=== PATIENT | female | born 1955 | race Caucasian/White ===

== ENCOUNTER → 2016-07-18 | Outpatient (CLI) | payer BC ==
[2016-07-18 18:40] VITALS: BP 150/89
== END ==
LOC: MHUC 18:06
PROVIDERS: ATTEND Physician Assistant
DX: M25.551 Pain in right hip (principal); M53.88 Other specified dorsopathies, sacral and sacrococcygeal region
CPT/HCPCS: 99213

== ENCOUNTER → 2016-07-31 | Outpatient (CLI) | payer BC | LOC: RAD 16:21 | PROVIDERS: ATTEND Family Medicine | DX: M54.16 Radiculopathy, lumbar region (principal); M51.36 Other intervertebral disc degeneration, lumbar region | CPT/HCPCS: 72148 ==